=== PATIENT | female | born 1980 | race Caucasian/White ===

== ENCOUNTER 2018-04-02 16:43 | Outpatient (CLI) | END 2018-04-02 18:20 | disposition home or self-care (01) ==

== ENCOUNTER 2018-04-03 21:13 | Outpatient (CLI) | END 2018-04-04 00:10 | disposition home or self-care (01) ==

== ENCOUNTER 2018-05-05 22:01 | Inpatient (IN) | END 2018-05-12 15:40 | disposition home or self-care (01) | DRG 765 ==